=== PATIENT | female | born 2000 | race Caucasian/White ===

== ENCOUNTER 2025-03-26 17:03 | Emergency (ER) | payer BC ==
[2025-03-26] MEDS: Bacitracin Oint 1 GM U/D Packet TOP ONE (18:14)
== END 2025-03-26 18:57 | disposition home or self-care (01) ==
LOC: JP.ED 17:03
DX: S61.112A Laceration without foreign body of left thumb with damage to nail, initial encounter (principal); W26.8XXA Contact with other sharp object(s), not elsewhere classified, initial encounter
CPT/HCPCS: 12001; 99282; 99283; J2003